=== PATIENT | female | born 1960 | race Caucasian/White ===

== ENCOUNTER 2017-12-26 14:03 | Outpatient (CLI) | payer OTHER ==
--- NOTE | 2017-12-26 15:03 | RAD ---
THREE VIEW RIGHT WRIST: Indication: Acute right wrist pain. FINDINGS: There is no fracture or dislocation identified. Mild osteoarthritis is present. IMPRESSION: 1. No acute osseous abnormality of the right wrist. 2. Osteoarthrosis. POS: [facility]
== END 2017-12-26 14:04 | disposition home or self-care (01) ==
LOC: SCSRAD 14:03
PROVIDERS: ATTEND Family Medicine
DX: M25.531 Pain in right wrist (principal); M19.90 Unspecified osteoarthritis, unspecified site